=== PATIENT | female | born 1965 | race Caucasian/White ===

== ENCOUNTER 2017-09-24 02:10 | Emergency (ER) | payer BC ==
[~2017-09-24] VITALS: Ht 160 cm; Wt 230.0 kg
[~2017-09-24 02:10] MED LIST: ASPIR-LOW81 MG PO; ATENOLOL50 MG PO; CALTRATE 600 +1 EAC1 PO; IBUPROFEN800 MG PO; LIPITOR40 MG PO; NORCO 5-325 TA1 EACH PO; SYNTHROID150 MCG PO; VITAMIN C1000 M2 PO
[2017-09-24] MEDS ORDERED: FLUVOXAMINE MA150 MG PO (02:26)
[2017-09-24] MEDS ORDERED: TAMIFLU75 MG PO (02:26)
[2017-09-24] MEDS ORDERED: NORCO 5-325 TA1 EACH PO (02:38)
[2017-09-24] MEDS ORDERED: AMOXICILLIN500 MG PO (02:38)
== END 2017-09-24 02:45 | disposition home or self-care (01) ==
LOC: ED 02:10
DX: J02.9 Acute pharyngitis, unspecified (principal); I10 Essential (primary) hypertension; E78.00 Pure hypercholesterolemia, unspecified; Z90.710 Acquired absence of both cervix and uterus; Z88.1 Allergy status to other antibiotic agents; Z79.899 Other long term (current) drug therapy
CPT/HCPCS: 87081; 87880; 99283

== ENCOUNTER 2019-02-09 06:48 | Day surgery (SDC) | payer BC ==
[~2019-02-09] VITALS: Ht 160 cm; Wt 107.5 kg
[~2019-02-09 06:48] MED LIST changes: +AMOXICILLIN500 MG PO; +FLUVOXAMINE MA150 MG PO; +TAMIFLU75 MG PO
--- NOTE | 2019-02-09 08:15 | NUR ---
02/09/19 0815 Carly Suazo 0811-PATIENT ARRIVED TO PACU ON 2L NC RR EVEN AWAKE DROWSY DENIES PAIN OR NAUSEA. ENCOURAGED TO PASS GAS.
--- NOTE | 2019-02-09 21:11 | OR ---
[facility] [address], [place] [address] Signed DATE OF OPERATION: 02/09/2019 SURGEON: Funmi Laws MD PREOPERATIVE DIAGNOSIS: Colon screening. POSTOPERATIVE DIAGNOSES: 1. Sigmoid diverticulosis. 2. Polyps x2. PROCEDURE PERFORMED: Total colonoscopy to cecum with cold morcellation polypectomy x2. ANESTHESIA: Intravenous sedation; fentanyl 100 mcg, Versed 5 mg. INDICATION: This 53-year-old white woman is a patient of Dr. Powers and is referred for colon screening. She has not had colon evaluation in the past. She has no known family history of colon cancer. She is admitted to undergo screening colonoscopy; understands the risks of bleeding, infection, and perforation. FINDINGS: The prep was quite good. Complete colonoscopy was undertaken to the cecum. Numerous diverticula were seen in the sigmoid and left colon. There were two polyps; one in the mid left colon and another in the low rectum. Both were excised with cold morcellation technique. A clip was applied to the lowest excised polyp due to continued bleeding likely related to hemorrhoidal plexus. PROCEDURE: The patient was brought to the endoscopy suite and placed in lateral decubitus position given intravenous sedation to the point of slurred speech and nystagmus. Digital rectal examination was normal. An Olympus video colonoscope was passed in the rectum and manipulated throughout the colon. Passage to the sigmoid and left colon was challenging on the basis of diverticulosis, which were somewhat extensive. The scope was then advanced beyond that point, ultimately to the cecum itself. With various manipulations, the cecum was more fully evaluated. At one point using the "pull-up technique" of mucosa to fully Electronically Signed By: FUNMI LAWS MD 02/09/19 5141 PATIENT NAME: SLAVA HERNANDEZ OPERATIVE REPORT DATE OF : 61 REPORT #: [id number] PHYSICIAN: FUNMI LAWS MD PCP: JORDY POWERS MD REPORT IS CONFIDENTIAL AND NOT TO BE RELEASED WITHOUT AUTHORIZATION [facility] [address] [place] [id number] Signed visualize the cecal mucosa. The scope was then withdrawn and examination throughout showed no sign of abnormality until the mid descending colon where a small sessile polyp was noted. This was excised with cold morcellation technique. Further withdrawal showed diverticula once again and in the lowest part of the rectum on retroflexed view, a small polyp probably hyperplastic. This was excised with cold morcellation technique. Persistent oozing of blood prompted use of a hemoclip to secure hemostasis, which was effective. The scope was removed. The patient taken to recovery room in good condition. CONCLUDING DIAGNOSES: 1. Diverticulosis. 2. Polyps x2. PLAN: Recommend high-fiber diet. Recommend repeat colonoscopy in 3 years, sooner if symptoms should develop. She will return to the ongoing care of Dr. Powers. MD DIRK Schaeffer/DREW /[id number] cc: Jordy Powers MD Copies: JORDY OPWERS MD ~ Electronically Signed By: FUNMI LAWS MD 02/09/19 2111 PATIENT NAME: DAVIDLUCY OPERATIVE REPORT DATE OF : 61 REPORT #: [id number] PHYSICIAN: FUNMI LAWS MD PCP: JORDY POWERS MD REPORT IS CONFIDENTIAL AND NOT TO BE RELEASED WITHOUT AUTHORIZATION
== END 2019-02-09 08:43 | disposition home or self-care (01) ==
LOC: DS 06:48 → OPS 06:48
PROVIDERS: Surgery
PROC: 0DBE8ZZ Excision of Large Intestine, Via Natural or Artificial Opening Endoscopic (ICD-10-PCS; 2019-02-09)
PROC: 0DBP8ZZ Excision of Rectum, Via Natural or Artificial Opening Endoscopic (ICD-10-PCS; principal; 2019-02-09 08:30)
DX: Z12.11 Encounter for screening for malignant neoplasm of colon (principal); K62.1 Rectal polyp; K63.5 Polyp of colon; K57.30 Diverticulosis of large intestine without perforation or abscess without bleeding; E66.9 Obesity, unspecified; E89.0 Postprocedural hypothyroidism; G47.30 Sleep apnea, unspecified; Z88.1 Allergy status to other antibiotic agents; Z68.41 Body mass index [BMI] 40.0-44.9, adult
CPT/HCPCS: 99153; G0500; J2250; J3010; J7120

== ENCOUNTER 2022-03-02 11:34 | Day surgery (SDC) | payer BC ==
[~2022-03-02] VITALS: Ht 160 cm; Wt 105.0 kg
[~2022-03-02 11:34] MED LIST changes: +VITAMIN C100 MG PO; +VITAMIN D325 MC4 PO
--- NOTE | 2022-03-02 15:40 | NUR ---
03/02/22 1540 Kimmie Alonzo 1522 PT ARRIVED IN PACU SLEEPY WITH NO C/O'S. ABD SOFT AND PASSING FLATUS. 1539 SITTING UP IN BED SIPPING ON WATER. NO C/O'S.
--- NOTE | 2022-03-03 12:06 | OR ---
[facility] [address] [place], [place] [address] Signed DATE OF OPERATION: 03/02/2022 SURGEON: Funmi Laws MD PREOPERATIVE DIAGNOSIS: History of hyperplastic polyps in January 2019. POSTOPERATIVE DIAGNOSIS: Left-sided diverticulosis. PROCEDURE: Total colonoscopy to cecum. ANESTHESIA: Intravenous sedation, fentanyl 150 mcg, and Versed 5 mg. INDICATION: This 56-year-old white woman is a patient of Dr. Layne. She underwent colonoscopy by me in 2018, where she was found to have hyperplastic polyps. Consideration has been made for surveillance colonoscopy, though it is acknowledged that hyperplastic polyps are of no real risk for malignancy. She has no known family history of colon cancer. She does have other medical problems including hypertension, hypothyroidism as well as sleep apnea, for which she has a CPAP device. She has had thyroidectomy by Dr. Tanner in 2015, for cancer. She is admitted to undergo surveillance colonoscopy understand the risks of bleeding, infection, perforation. FINDINGS: The prep was excellent. Complete colonoscopy was undertaken to the cecum without question. She did have diverticula of the left colon. There was no evidence of recurrent or persistent polyp. There were no other findings of concern. DESCRIPTION OF PROCEDURE: The patient was brought to the endoscopy suite and placed in lateral decubitus position, given intravenous sedation to the point of slurred speech and nystagmus. Digital rectal examination was normal. An Olympus video colonoscope was passed in the rectum and manipulated throughout the colon. The sigmoid was rather tortuous and it was slightly challenging to pass beyond, but was accomplished and diverticula were noted as the cause of that. The scope was ultimately advanced to the cecum. The ileocecal valve and appendiceal orifice were Electronically Signed By: FUNMI LAWS MD 03/03/22 1206 PATIENT NAME: SLAVA HERNANDEZ OPERATIVE REPORT DATE OF : 61 REPORT #: [id number] PHYSICIAN: FUNMI LAWS MD PCP: OREN COLIN MD REPORT IS CONFIDENTIAL AND NOT TO BE RELEASED WITHOUT AUTHORIZATION [facility] [address] [place], [place] [address] Signed normal. Scope was withdrawn from that point. Examination throughout showed no sign of abnormality other than diverticulosis. Retroflexed view in the rectum was normal as well. The scope was removed. The patient was taken to the recovery room in good condition. CONCLUDING DIAGNOSIS: Diverticulosis. No evidence of polyps. PLAN: Recommend repeat colonoscopy in 10 years sooner if clinically indicated. She will return to the ongoing care of Dr. Layne. MD DIRK Schaeffer/MODL /[id number] cc: Gt Layne MD Copies: ~ Electronically Signed By: FUNMI LASW MD 03/03/22 1206 PATIENT NAME: SLAVA HERNANDEZ OPERATIVE REPORT DATE OF : 61 REPORT #: [id number] PHYSICIAN: FUNMI LAWS MD PCP: OREN COLIN MD REPORT IS CONFIDENTIAL AND NOT TO BE RELEASED WITHOUT AUTHORIZATION
== END 2022-03-02 15:51 | disposition home or self-care (01) ==
LOC: OPS 11:34 → DS 11:34 → OPS 13:00
PROVIDERS: ATTEND Surgery
PROC: 0DJD8ZZ Inspection of Lower Intestinal Tract, Via Natural or Artificial Opening Endoscopic (ICD-10-PCS; principal; 2022-03-02 13:00)
DX: Z12.11 Encounter for screening for malignant neoplasm of colon (principal); K57.30 Diverticulosis of large intestine without perforation or abscess without bleeding; Z87.19 Personal history of other diseases of the digestive system; I10 Essential (primary) hypertension; G47.30 Sleep apnea, unspecified; E89.0 Postprocedural hypothyroidism; E66.9 Obesity, unspecified; Z88.1 Allergy status to other antibiotic agents; Z88.0 Allergy status to penicillin; Z85.850 Personal history of malignant neoplasm of thyroid; Z68.41 Body mass index [BMI] 40.0-44.9, adult
CPT/HCPCS: J2250; J3010; J7121

== ENCOUNTER 2025-04-24 05:40 | Day surgery (SDC) | payer BC ==
[~2025-04-24] VITALS: Ht 160 cm; Wt 101.0 kg
[~2025-04-24 05:40] MED LIST changes: +BACTRIM DS TAB1 EACH PO; +DICLOFENAC SODI75 MG PO; +GABAPENTIN600 MG PO; +HEALTHYLAX17 GM PO; +LACTATED RINGER'S 1,000 ML IV SCH; +LISINOPRIL-HCT1 EACH PO; +OXYCODONE HCL5 MG PO; +XARELTO10 MG PO
[2025-04-24 06:06] VITALS: BP 147/86
[2025-04-24] MEDS ORDERED: Ropivacaine HCl 20 MG/10 ML AMP ONE (06:06)
[2025-04-24] MEDS ORDERED: Ropivacaine HCl 0.5% 30 ML VIAL ONE (06:55)
[2025-04-24] MEDS ORDERED: MIDAZOLAM HCL 2 MG/2 ML VIAL ONE (06:55)
[2025-04-24] MEDS ORDERED: LIDOCAINE HCL 2% 5 ML SDV ONE (06:55)
[2025-04-24] MEDS ORDERED: GABAPENTIN 600 MG TAB PO SCH (07:00)
[2025-04-24] MEDS ORDERED: LIDOCAINE HCL 1% 5 ML SDV INJ ONE (07:00)
[2025-04-24] MEDS ORDERED: INTRA-ARTICULAR ANALGESIC INJECTION XX SCH (07:00)
[2025-04-24] MEDS ORDERED: CEFAZOLIN SODIUM 2 GM/20 ML SYR IV SCH ×2 (07:00→13:00)
[2025-04-24] MEDS ORDERED: IBLOOD GLUCOSE TEST STRIP 1 EA TEST VI PRN ×2 (07:00→07:45)
[2025-04-24] MEDS ORDERED: ROPIVACAINE IN 0.9% SOD CHL/PF 545 ML ELS.PMP.HR IRRIGATION SCH (07:00)
[2025-04-24] MEDS ORDERED: TRANEXAMIC ACID IN NACL,ISO-OS 1,000 MG/100 ML PIGGYBACK IV SCH ×2 (07:00→09:25)
[2025-04-24] MEDS ORDERED: OXYCODONE HCL 5 MG TAB PO SCH (07:00)
[2025-04-24] MEDS ORDERED: PANTOPRAZOLE SODIUM 40 MG TABEC PO SCH (07:00)
[2025-04-24] MEDS ORDERED: PHENYLEPHRINE HCL 10 MG/ML VIAL ONE (07:31)
[2025-04-24] MEDS ORDERED: fentaNYL citrate 50 MCG/ML SDV IV PRN (07:45)
[2025-04-24] MEDS ORDERED: METOCLOPRAMIDE HCL 10 MG/2 ML SDV IV PRN (07:45)
[2025-04-24] MEDS ORDERED: NALOXONE HCL 0.4 MG SYR IV PRN (07:45)
[2025-04-24] MEDS ORDERED: HYDROmorphone HCL 1 MG/ML SYR IV PRN (07:45)
[2025-04-24] MEDS ORDERED: CEFUROXIME250 MG PO (08:24)
[2025-04-24] MEDS ORDERED: DICLOFENAC SODI75 MG PO (08:24)
[2025-04-24] MEDS ORDERED: GABAPENTIN300 MG PO (08:24)
[2025-04-24] MEDS ORDERED: OXYCODONE HCL5 M1 PO (08:24)
[2025-04-24] MEDS ORDERED: SENNA LAX8.6 MG PO (08:24)
[2025-04-24] MEDS ORDERED: OXYCODONE HCL 5 MG TAB PO PRN (08:30)
[2025-04-24] MEDS ORDERED: KETOROLAC TROMETHAMINE 30 MG/ML VIAL IV PRN (08:30)
[2025-04-24] MEDS ORDERED: ACETAMINOPHEN 1,000 MG/100 ML VIAL ONE (08:31)
[2025-04-24] MEDS ORDERED: KETOROLAC TROMETHAMINE 30 MG/ML VIAL ONE (08:31)
--- NOTE | 2025-04-24 08:43 | NUR ---
04/24/25 0843 Gabbie Monet 0832: PT ARRIVES TO PACU AWAKE, SLIGHTLY DROWSY. REPORT RECIEVED FROM SOLUTION DESIGN ENGINEER AND HANDICAPPED TEACHER.
[2025-04-24 09:26] VITALS: BP 100/51
--- NOTE | 2025-04-24 09:28 | NUR ---
0918- RECIEVED REPORT FROM ERICA PINEDA. PT IS IN POSTION OF COMFORT, NO COMPLAINTS OR NEEDS AT THIS TIME. CRYOCUFF IS IN PLACE. MEDS GIVEN PER EMAR. CALL LIGHT IN REACH, SNACKS AND FLUIDS PROVIDED. BED LOCKED IN LOWEST POSTION. FAMILY IN ROOM. PT NOTIFIED TO CALL FOR US IF NEEDING TO VOID. WAITING FOR PHYSICAL THERAPY TO ARRIVE, DISCHARGE EDUCATION DISCUSSED AND PT ACKNOWLEDGED.
--- NOTE | 2025-04-24 10:20 | NUR ---
IN PT ROOM FOR VS AND ASSESSMENT. NO ACUTE CHANGES FROM PREVIOUS SURGICAL ASSESSMENT. SPINAL HAS RESOLVED, PT ABLE TO FULLY MOVE FEET AND LEGS BILAT, W/NO EXISTING NUMBNESS/TINGLING. LUNCH ORDER PLACED. PT REPORTS PAIN TOLERABLE AT 3/10 AN ACHEY FEELING, STATES NO NEED FOR PRN PAIN MED AT THIS TIME. PT HAS TOLERATED 100% OF SNACKS WITHOUT ANY ONSET OF NAUSEA. CALL LIGHT WITHIN REACH, DAUGHTER IN LAW AT BEDSIDE, PT REPORTS NO FURTHER NEEDS OR QUESTIONS AT THIS TIME.
[2025-04-24 10:22] VITALS: BP 122/69
--- NOTE | 2025-04-24 11:30 | NUR ---
PHYSICAL THERAPY IN ROOM WITH PT AT THIS TIME. DAUGHTER IN LAW AT BEDSIDE.
--- NOTE | 2025-04-24 12:15 | NUR ---
PT BACK FROM PHYSICAL THERAPY. PER PHYSICAL THERAPIST, PT HAS PASSED. IN PT ROOM FOR ASSESSMENT AND VS. PT REPORTS PAIN TOLERABLE AND NO NEED FOR PRN MED AT THIS TIME. PT NOW EATING SANDWICH. CALL LIGHT WITHIN REACH, PT DAUGHTER IN LAW AT BEDSIDE. CALL LIGHT WITHIN REACH. PT STATES NO FURTHER NEEDS OR QUESTIONS AT THIS TIME.
--- NOTE | 2025-04-24 12:28 | NUR ---
NIMESH WALL CALLED AND UPDATED ON PT PASSING OF ALL REQUIREMENTS. VO FOR DC AND ADMIN OF IV ANCEF.
--- NOTE | 2025-04-24 12:35 | NUR ---
UPDATED PT ON POC AND VO FOR DC. PT DAUGHTER IN LAW IN ROOM TO ASSIST PT W/GETTING DRESSED. CALL LIGHT WITHIN REAWCH. PT STATES NO FURTHER NEEDS OR QUESTIONS AT THIS TIME.
[2025-04-24 12:40] VITALS: BP 107/55
--- NOTE | 2025-04-24 13:55 | NUR ---
IN PT ROOM TO ASSIST W/FEEDING ONQ PUMP THROUGH UNDERWEAR TO PREVENT TUGGING OF LINE. PER PT REQUEST, ONQ PUMP LINE SECURED WITH MORE OPSITES FOR COMFORT, AND SUSAN WRAP RE-WRAPPED. DC EDUCATION GIVEN, PT AND PT DAUGHTER IN LAW STATE VERBAL UNDERSTANDING AND NO FURTHER QUESTIONS OR NEEDS AT THIS TIME. NIMESH WALL CALLED TO VERIFY BLOOD THINNER FOR POST-OP. VO FOR PT TO TAKE 1 TABLET OF 325 MG OF ASPIRIN BID FOR 30 DAYS, VERBAL READ BACK. PT UPDATED AND THESE INSTRUCTIONS WRITTEN ON DC FOLDER. PT OFF OF UNIT VIA WC TO PASSENGER SIDE OF VEHICLE. GAIT IS STEADY. ALL BELONGINGS IN PT POSSESSION. ICE PACK PROVIDED. PT STATES NO FURTHER QUESTIONS OR NEEDS AT THIS TIME.
[2025-04-24] MEDS ORDERED: CEFAZOLIN SODIUM 2 GM in SODIUM CHLORIDE 0.9% 100 ML IV SCH (15:00)
[2025-04-24] MEDS ORDERED: GABAPENTIN 300 MG CAP PO SCH (15:00)
[2025-04-24] MEDS ORDERED: SENNOSIDES 1 TAB PO SCH (21:00)
[2025-04-25] MEDS ORDERED: DICLOFENAC SOD 75 MG TABEC PO SCH (08:00)
--- NOTE | 2025-04-25 10:03 | OR ---
[facility] [address] [place], [place] [address] Signed DATE OF OPERATION: 04/24/2025 SURGEON: Serenity Smith MD PREOPERATIVE DIAGNOSIS: Severe osteoarthritis, left knee. POSTOPERATIVE DIAGNOSIS: Severe osteoarthritis, left knee. PROCEDURE PERFORMED: Left total knee arthroplasty with Josep. FLOWER BUNCHER OR PICKER: Mandy Chávez PA-C. Mandy was present and critical for all portions of procedure. ANESTHESIA: Spinal. BLOOD LOSS: 175 mL. TOURNIQUET TIME: Zero. IMPLANTS: [place] Triathlon size 4 10 mm polyethylene, a 32 mm patella. BRIEF HISTORY: Slava is a 59-year-old female with progressive worsening of osteoarthritis in her left knee. She had undergone prior right total knee with good results and wished to proceed with a left. Risks, benefits, and alternatives of surgery were discussed with her and she elected to proceed. DESCRIPTION OF PROCEDURE: Once consent was obtained, she was taken to the operating room. After adequate anesthesia, she was placed on the OR table with the left hip bump. The leg was prepped and draped in a standard sterile fashion. The knee was approached through a standard anterior midline incision. The skin flaps were developed medially and laterally. A low Electronically Signed By: SERENITY SMITH MD 04/25/25 1003 PATIENT NAME: SLAVA HERNANDEZ OPERATIVE REPORT DATE OF : 61 REPORT #: [id number] PHYSICIAN: SERENITY SMITH MD PCP: SYED SELF MD REPORT IS CONFIDENTIAL AND NOT TO BE RELEASED WITHOUT AUTHORIZATION [facility] [address] [place], [place] [address] Signed mid vastus arthrotomy was performed. An infrapatellar fat pad was excised. The MCL was elevated as a sleeve around the posteromedial corner. The anterior horns of menisci were transected as was the ACL. PCL was found to be intact. The navigation computer arrays were then placed in the distal femur and proximal tibia. The leg was then registered with computer, followed by the fine anatomic points of the knee. The four ligamentous poses were undertaken and slight adjustments were made to balance the medial side of the knee. The robot was then brought in. The four straight cuts and two ankle cuts were made with care taken to protect the patellar tendon and MCL. The bony remnants were removed as were any remaining osteophytes. The posterior osteophyte was removed off the femur. No release was performed. The trials were then positioned and the knee was taken from 0-130 degrees of flexion with good stability throughout. The patella was cut, sized, and drilled for a 32 mm patella, which tracked well. The distal femoral drill holes were completed, followed by the keel punch and drill holes for the tibia. The components were obtained. The tibia was impacted into position first followed by the polyethylene. The femur was then impacted until it was seated flush. The knee was then extended and loaded. The patellar component was then clamped until it was seated flush with the cut. The patella was again noticed to track very nicely. The wound was then copiously irrigated with one bottle of Surgiphor followed by normal saline. The On-Q pain pump was percutaneously placed into the adductor canal from the suprapatellar pouch. The periarticular soft tissue was injected with 100 mL ropivacaine Toradol mixture. The arthrotomy was then closed using a combination of #2 FiberWire, #2 Stratafix, subcutaneous tissue with 0 Stratafix and the skin with 3-0 Stratafix. The wound was sealed with LiquiBand, Steri-Strips and dressed with an Acticoat-7 dressing, ABDs, and Trung wrap. She tolerated the procedure well. All sponge, needle, and instrument counts were correct. Serenity Smith MD BA/MODL /[id number] Copies: ~ Electronically Signed By: SERENITY SMITH MD 04/25/25 1003 PATIENT NAME: SLAVA HERNANDEZ OPERATIVE REPORT DATE OF : 61 REPORT #: [id number] PHYSICIAN: SERENITY SMITH MD PCP: SYED SELF MD REPORT IS CONFIDENTIAL AND NOT TO BE RELEASED WITHOUT AUTHORIZATION
== END 2025-04-24 13:25 | disposition home or self-care (01) ==
LOC: DS 05:40
PROVIDERS: ATTEND Specialist
PROC: 0SRD0JZ Replacement of Left Knee Joint with Synthetic Substitute, Open Approach (ICD-10-PCS; principal; 2025-04-24 07:00)
DX: M17.12 Unilateral primary osteoarthritis, left knee (principal); E78.00 Pure hypercholesterolemia, unspecified; E11.9 Type 2 diabetes mellitus without complications; I10 Essential (primary) hypertension; E89.0 Postprocedural hypothyroidism; Z85.850 Personal history of malignant neoplasm of thyroid; Z87.891 Personal history of nicotine dependence; Z79.890 Hormone replacement therapy; Z79.899 Other long term (current) drug therapy; Z88.1 Allergy status to other antibiotic agents; Z96.651 Presence of right artificial knee joint
CPT/HCPCS: 01402; 64447; 64454; 73560; 76942; 97110; 97161; 97530; A9270; C1713; C1776; J0131; J0690; J1885; J2003; J2250; J2371; J2405; J2704; J2795; J7121; J7999

== ENCOUNTER 2025-05-20 17:10 | Emergency (ER) | payer BC ==
[~2025-05-20] VITALS: Ht 160 cm; Wt 101.0 kg
[~2025-05-20 17:10] MED LIST changes: +CEFUROXIME250 MG PO; +GABAPENTIN300 MG PO; -LACTATED RINGER'S 1,000 ML IV SCH; +OXYCODONE HCL5 M1 PO; +SENNA LAX8.6 MG PO
[2025-05-20 20:05] VITALS: BP 133/81
== END 2025-05-20 20:05 | disposition home or self-care (01) ==
LOC: ED 17:10
DX: I95.89 Other hypotension (principal); I10 Essential (primary) hypertension; E89.0 Postprocedural hypothyroidism; E78.00 Pure hypercholesterolemia, unspecified; Z85.850 Personal history of malignant neoplasm of thyroid; Z88.1 Allergy status to other antibiotic agents; Z79.890 Hormone replacement therapy; Z79.899 Other long term (current) drug therapy
CPT/HCPCS: 99284